=== PATIENT | female | born 1965 | race Two or more races ===

== ENCOUNTER 2023-02-11 13:07 | Emergency (ER) | payer MEDICAID, OTHER ==
[~2023-02-11] VITALS: Ht 152.4 cm; Wt 69.1 kg
[2023-02-11] MEDS ORDERED: fentaNYL CITRATE 100 MCG/2 ML VL IM ONE (13:30)
[2023-02-11] MEDS ORDERED: SODIUM CHLORIDE 0.9% 3,000 ML IV ONE (13:30)
[2023-02-11 14:08] LABS: Basophils # (auto) 0 10 ^3/uL (0-0.2); Basophils % (auto) 0.7 % (0.0-2.0); Eosinophils # (auto) 0.1 10 ^3/uL (0-0.8); Eosinophils % (auto) 1.9 % (0.0-7.0); Hematocrit 38.2 % (36.0-46.0); Hemoglobin 13.1 g/dL (12.2-16.2); Lymphocytes # (auto) 2.1 10 ^3/uL (0.4-5.4); Mean Corpuscular Hemoglobin 27.4 pg (28.0-32.0); Mean Corpuscular Hgb Conc. 34.2 g/dL (32.0-36.0); Monocytes # (auto) 0.4 10 ^3/uL (0-1.3); Monocytes % (auto) 4.9 % (0.0-12.0); Neutrophils # (auto) 4.8 10 ^3/uL (1.6-8.6); Neutrophils % (auto) 64.5 % (37.0-80.0); Nucleated Red Blood Cells % 0.1 %; Red Blood Cells 4.77 10^6/uL (4.0-5.20); Red Cell Distribution Width 13.6 % (11.8-14.3); White Blood Cell 7.4 10^3/uL (4.4-10.8)
[2023-02-11] MEDS ORDERED: SODIUM CHLORIDE 0.9% 1,000 ML IV ONE (14:15)
[2023-02-11 14:27] LABS: INR 0.95 (0.9-1.15); Partial Thromboplastin Time 27.3 sec (24.6-33.4)
[2023-02-11 14:29] LABS: Albumin 3.9 g/dL (3.4-5.0); Calcium 8.9 mg/dL (8.5-10.1); Potassium 3.9 mmol/L (3.5-5.1)
[2023-02-11] MEDS ORDERED: fentaNYL CITRATE 100 MCG/2 ML VL IV ONE (14:30)
[2023-02-11 14:33] LABS: Bilirubin, Total 0.3 mg/dL (0.2-1.0); Total Protein 7.3 g/dL (6.4-8.2)
[2023-02-11 15:10] LABS: Urine Bacteria FEW /hpf (None Seen); Urine Blood Negative /uL (Negative); Urine Specific Gravity 1.007 (1.001-1.035); Urine WBC 2 /hpf (0 - 5)
[2023-02-11] MEDS ORDERED: BACLOFEN 10 MG TAB PO ONE (15:30)
[2023-02-11] MEDS ORDERED: KETOROLAC TROMETH 30 MG/ML 1ML VIAL IV ONE (15:30)
[2023-02-11 20:00] VITALS: BP 124/63
[2023-02-11] MEDS ORDERED: BACL10TA PO (21:12)
[2023-02-11] MEDS ORDERED: MELO1TAB56 PO (21:12)
== END 2023-02-12 05:30 | disposition home or self-care (01) ==
LOC: EDBD 13:07 → ER 13:07
DX: M25.551 Pain in right hip (principal); E11.9 Type 2 diabetes mellitus without complications; M54.2 Cervicalgia; R06.02 Shortness of breath; V43.52XA Car driver injured in collision with other type car in traffic accident, initial encounter; Y93.89 Activity, other specified; Y92.89 Other specified places as the place of occurrence of the external cause; Y99.8 Other external cause status
CPT/HCPCS: 36415; 70450; 71045; 71250; 72125; 73552; 73610; 74176; 80053; 81001; 82962; 85025; 85610; 85730; 86850; 86900; 86901; 96361; 96374; 96375; 99285; J1885; J3010; J7030